=== PATIENT | male | born 1980 | race Caucasian/White ===

== ENCOUNTER 2017-02-16 17:43 | Emergency (ER) | payer MEDICAID ==
[~2017-02-16] VITALS: Ht 160 cm; Wt 74.0 kg
[2017-02-16 23:44] VITALS: BP 118/70
== END 2017-02-16 23:44 | disposition home or self-care (01) ==
LOC: ED 17:43
DX: L97.519 Non-pressure chronic ulcer of other part of right foot with unspecified severity (principal); L03.115 Cellulitis of right lower limb
CPT/HCPCS: J0696

== ENCOUNTER 2018-03-31 09:23 | Emergency (ER) | payer MEDICAID ==
[~2018-03-31] VITALS: Ht 167.6 cm; Wt 73.0 kg
[2018-03-31 09:31] VITALS: Ht 167.6 cm; Wt 73.0 kg
[2018-03-31 11:21] VITALS: BP 137/89
== END 2018-03-31 11:21 | disposition home or self-care (01) ==
LOC: ED 09:23
DX: T63.441A Toxic effect of venom of bees, accidental (unintentional), initial encounter (principal); Y92.89 Other specified places as the place of occurrence of the external cause
CPT/HCPCS: J1200; J2930

== ENCOUNTER 2018-08-15 07:14 | Inpatient (IN) | payer MEDICAID ==
[~2018-08-15] VITALS: Ht 167.6 cm; Wt 74.9 kg
[2018-08-15 07:19] VITALS: Ht 167.6 cm; Wt 74.9 kg
--- NOTE | 2018-08-15 07:30 | NUR ---
PT BIB WITH C/O ABDOMINAL PAIN X3 DAYS. LOCATION IS [place], PAIN IS CONSTANT AND HAS BEEN WORSENING. PT DENIES N/V/D OR FEVER. AT BEDSIDE PT IS AAOX4, RESPS E/U, SKIN IS PINK, WARM AND DRY. PT AMBULATED WITH STEADY GAIT FROM LOBBY TO ROOM. PT AND ORIENTED TO ROOM AND USE OF CALL VIDAL. BED IN LOWEST POSITION. DR. GERMAN COMPLETED MSE.
--- NOTE | 2018-08-15 07:44 | NUR ---
PT MEDICATED PER MD ORDERS. PT VERBALIZES UNDERSTANDING OF MEDICAITON. SEE EMAR FOR DETAILS.
[2018-08-15 07:49] LABS: BASOPHIL % 0.5 % (0-2); RED CELL DISTRIBUTION WIDTH 13.3 % (11.5-14.5)
[2018-08-15 07:53] LABS: PLATELET COUNT 430 x10^3mcL (130-400)
--- NOTE | 2018-08-15 08:04 | NUR ---
PT TAKEN TO ULTRA SOUND VIA WHEELCHAIR. NO DISTRESS NOTED AEB RESPS E/U, PT CALM AND COOPERATIVE.
[2018-08-15 08:08] LABS: CALCIUM 8.6 mg/dL (8.5-10.1); CARBON DIOXIDE 30.1 mmol/L (21-32); CHLORIDE SERUM 100 mmol/L (98-107); CREATININE SERUM 1.1 mg/dL (0.7-1.3); GFR1 > 60 mL/min; GLUCOSE SERUM 133 mg/dL (74-106); POTASSIUM SERUM 3.3 mmol/L (3.5-5.1); SODIUM SERUM 133 mmol/L (136-145)
[2018-08-15 08:11] LABS: AMPHETAMINE QUAL UR NONE DETECTED (See below)
[2018-08-15 08:13] LABS: ALBUMIN 3.4 g/dL (3.4-5.0); ALKALINE PHOSPHATASE 86 U/L (46-116); ALT/SGPT 36 U/L (16-63); AMYLASE 358 U/L (25-115); AST/SGOT 26 U/L (15-37); BILIRUBIN TOTAL 0.91 mg/dL (0.20-1.00); TOTAL PROTEIN, SERUM 7.1 g/dL (6.4-8.2)
[2018-08-15 08:32] LABS: LIPASE 5538 IU/L (73-393)
--- NOTE | 2018-08-15 09:02 | NUR ---
PER DR. ROBLES ONLY GIVE 1 LITER VS. 2 LITERS.
--- NOTE | 2018-08-15 09:17 | NUR ---
PT MEDICATED PER MD ORDERS. PT VERBALIZED UNDERSTANDING OF MEDICATION. SEE EMAR FOR DETAILS.
--- NOTE | 2018-08-15 09:24 | NUR ---
PER PT "PAIN WENT DOWN". AND RATES PAIN AT 3/10.
--- NOTE | 2018-08-15 10:12 | NUR ---
REPORT GIVEN TO REMEDIOS DENISE FROM [facility] TO ASSUME CARE FOR PT.
--- NOTE | 2018-08-15 10:21 | NUR ---
PER PT PAIN RETURNED BUT WENT AWAY. WHEN IT DOES PT STATES "IT'S LIKE A 5/10"
--- NOTE | 2018-08-15 10:50 | NUR ---
RECEIVED PT FROM ED WITH CC EPIGASTRIC/ABDOMINAL PAIN X2 DAYS. PT REPORTS DRINKING 6 CANS OF BEER PRIOR TO EPIGASTRIC PAIN ONSET. AAOX4. RESP EVEN AND UNLABORED ON RA. ABDOMEN SOFT, ROUND. BOWEL SOUNDS ACTIVE. LAST MEAL 08/14/17 IN THE AFTERNOON. LAST BM 08/14/17, [facility]. C/O 10/10 EPIGASTRIC PAIN AT THIS TIME, WILL MEDICATE ORDERED. DENIES N/V. VOIDING FREELY. AMBULATORY. IV TO LAC AND RAC, NO REDNESS OR SWELLING. ORIENTED TO ROOM AND SURROUNDINGS. BED IN LOW POSITION, CALL LIGHT WITHIN REACH. WILL CONTINUE TO MONITOR.
[2018-08-15 11:12] VITALS: BP 141/87
[2018-08-15 12:37] LABS: MAGNESIUM 1.9 mg/dL (1.8-2.4); PHOSPHOROUS 3.9 mg/dL (2.5-4.9)
[2018-08-15 12:41] LABS: T3 TOTAL 0.88 ng/mL
[2018-08-15 13:57] VITALS: BP 125/87
--- NOTE | 2018-08-15 13:58 | NUR ---
PT CONTINUES TO C/O EPIGASTRIC PAIN. MEDICATED ORDERED. RESTING WITH EYES CLOSED. RESP EVEN AND UNLABORED ON RA. IVF INFUSING, NO REDNESS OR SWELLING TO RAC AND LAC. NPO EXCEPT MEDS. CALL LIGHT WITHIN REACH. WILL CONTINUE TO MONITOR.
[2018-08-15 14:21] LABS: FREE T4 0.83 ng/dL (0.76-1.46); FREE THYROXINE INDEX 2.2 ug/dL (1.4-4.5); T4(THYROXINE) 5.6 ug/dL (4.7-13.3)
[2018-08-15 15:50] VITALS: BP 150/79
--- NOTE | 2018-08-15 18:55 | NUR ---
PT RESTING IN BED. MEDICATED ORDERED FOR EPIGASTRIC PAIN AND HEADACHE. NPO EXCEPT MEDS. IVF INFUSING, NO REDNESS OR SWELLING NOTED. BED IN LOW POSITION, CALL LIGHT WITHIN REACH. WILL ENDORSE TO ONCOMING SHIFT.
--- NOTE | 2018-08-15 20:00 | NUR ---
RECEIVED PT IN BED, ALERT AND ORIENTED. DENIES HEADACHE/DIZZINESS. RESP. EVEN AND UNLABORED. ON ROOM AIR, NO ACUTE DISTRESS NOTED. NO TELE, DENIES CP OR ANY DISCOMFORT AT THIS TIME. IVF, NS AT 200ML/HR, INTACT AND INFUSING VIA RAC, SITE CLEAR. NPO EXCEPT MEDS. ABD. SOFT, NON DISTENDED, NO N/V NOTED. VOIDING FREELY. AMBULATORY. CALL LIGHT WITHIN REACH. WILL CONTINUE TO MONITOR.
[2018-08-15 22:00] VITALS: BP 127/82
--- NOTE | 2018-08-15 23:08 | NUR ---
COMPLAINED OF ABD. PAIN, 01/11, REQUESTING PAIN MED. MEDICATED WITH DILAUDID IV ORDERED. WILL CONTINUE TO MONITOR.
--- NOTE | 2018-08-16 01:54 | NUR ---
EYES CLOSED, APPEARS ASLEEP. EASILY AROUSABLE. NO ACUTE DISTRESS NOTED. WILL CONTINUE TO MONITOR.
[2018-08-16 05:12] VITALS: BP 119/76
--- NOTE | 2018-08-16 05:54 | NUR ---
CONT. TO COMPLAIN OF ABD. PAIN, MEDICATED ORDERED WITH RELIEF.NPO EXCEPT MEDS MAINTAINED. AFEBRILE AND VITAL SIGNS STABLE. RESP. EVEN AND UNLABORED. NO ACUTE DISTRESS NOTED. VOIDING FREELY . ENCOURAGED AMBULATION. KEPT COMFORTABLE. CALL LIGHT WITHIN REACH. WILL CONTINUE TO MONITOR.
[2018-08-16 06:48] LABS: CALCIUM 8.1 mg/dL (8.5-10.1); CARBON DIOXIDE 27.8 mmol/L (21-32); CHLORIDE SERUM 100 mmol/L (98-107); CREATININE SERUM 0.9 mg/dL (0.7-1.3); GFR1 > 60 mL/min; GLUCOSE SERUM 112 mg/dL (74-106); POTASSIUM SERUM 3.9 mmol/L (3.5-5.1); SODIUM SERUM 135 mmol/L (136-145)
[2018-08-16 06:49] LABS: BASOPHIL % 0.1 % (0-2); PLATELET COUNT 360 x10^3mcL (130-400); RED CELL DISTRIBUTION WIDTH 12.9 % (11.5-14.5)
--- NOTE | 2018-08-16 07:40 | NUR ---
RC'D PT RESTING IN BED WITH NO APPARENT SIGNS OF DISTRESS. A/A/O/X4, SPEECH CLEAR AND APPROPRIATE. MEDSURG. DENIES CHEST PAIN/PRESSURE. PALP PULSES, NO EDEMA NOTED. RESPIRATIONS EQUAL AND UNLABORED. LUNGS CTA. ON RA, DENIES SOB. ABDOMEN TENDER. HYPOACTIVE BS. DENIES N/V. VOIDS FREELY, DENIES BURNING. AMBULATORY. SKIN W/D/I. DENIES EXCESSIVE PAIN AT THIS TIME. IV PATENT AND INTACT. BED IN LOW POSITION. CALL LIGHT IN REACH. WILL CONTINUE TO MONITOR
[2018-08-16 08:06] VITALS: BP 117/68
[2018-08-16 08:21] LABS: LIPASE 5336 IU/L (73-393)
--- NOTE | 2018-08-16 09:15 | NUR ---
PT C/O OF HARKINS, MEDICATED PER EMAR. RESPIRATIONS EQUAL AND UNLABORED. ON RA, DENIES SOB. BED IN LOW POSITION. CALL LIGHT IN REACH. WILL CONTINUE TO MONITOR
--- NOTE | 2018-08-16 15:47 | NUR ---
PT C/O OF HARKINS, MEDICATED PER EMAR. WILL CONTINUE TO MONITOR
[2018-08-16 16:33] VITALS: BP 125/73
--- NOTE | 2018-08-16 17:47 | NUR ---
PT RESTING IN BED WITH NO APPARENT SIGNS OF DISTRESS. MEDSURG. DENIES CHEST PAIN/PRESSURE. RESPIRATIONS EQUAL AND UNLABORED. ON RA, DENIES SOB. ABDOMEN NONTENDER AT THIS TIME. DENIES N/V/PAIN. AMBULATORY. DENIES EXCESSIVE PAIN AT THIS TIME. IV PATENT AND INTACT. BED IN LOW POSITION. CALL LIGHT IN REACH. WILL ENDORSE TO SUBSTATION OPERATOR RN
--- NOTE | 2018-08-16 19:30 | NUR ---
RECIEVED PATIENT AT START OF SHIFT A/O X4. NO EDEMA NOTED, CAP REFILL BRISK, PULSES MODERATE. LUNGS CLEAR TO AUSCULTATION BILATERALLY. NO ABDOMINAL PAIN REPORTED AT THIS TIME. PATIENT IS NPO. ABDOMEN IS SOFT AND FLAT, BOWEL SOUNDS ACTIVE. PATIENT IS AMBULATORY. SKIN IS INTACT. IV INFUSING FLUIDS WITHOUT REDNESS OR EDEMA. WILL CONTINUE TO MONITOR.
--- NOTE | 2018-08-16 20:00 | NUR ---
PATIENT SHOWERED AND AMBULATED. NOW BACK IN BED RESTING. NO SOB. NO COMPLAINT OF PAIN. WILL CONTINUE TO MONITOR.
[2018-08-16 20:55] VITALS: BP 130/72
[2018-08-17 05:18] VITALS: BP 119/68
--- NOTE | 2018-08-17 06:31 | NUR ---
NO SIGNIFICANT EVENTS THIS SHIFT. WILL ENDORSE CARE TO MORNING NURSE.
[2018-08-17 07:15] LABS: BASOPHIL % 0.3 % (0-2); PLATELET COUNT 336 x10^3mcL (130-400); RED CELL DISTRIBUTION WIDTH 13.2 % (11.5-14.5)
[2018-08-17 07:17] LABS: CALCIUM 8.2 mg/dL (8.5-10.1); CARBON DIOXIDE 25.3 mmol/L (21-32); CHLORIDE SERUM 103 mmol/L (98-107); CREATININE SERUM 0.9 mg/dL (0.7-1.3); GFR1 > 60 mL/min; GLUCOSE SERUM 68 mg/dL (74-106); LIPASE 1354 IU/L (73-393); POTASSIUM SERUM 3.2 mmol/L (3.5-5.1); SODIUM SERUM 135 mmol/L (136-145)
--- NOTE | 2018-08-17 07:30 | NUR ---
RC'D PT RESTING IN BED WITH NO APPARENT SIGNS OF DISTRESS. A/A/O/X4, SPEECH CLEAR AND APPROPRIATE. DENIES HARKINS/DIZZINESS. MEDUSRG. DENIES CHEST PAIN/PERSSURE. PALP PULSES. RESPIRATIONS EQUAL AND UNLABORED. LUNGS CTA. ON RA, DENIES SOB. ABDOMEN NONTENDER. DENIES N/V. VOIDS FREELY. AMBULATORY. SKIN W/D/I. DENIES PAIN AT THIS TIME. IV PATENT AND INTACT. BED IN LOW POSITION. CALL LIGHT IN REACH. WILL CONTINUE TO MONITOR
[2018-08-17 09:29] VITALS: BP 119/67
--- NOTE | 2018-08-17 12:05 | NUR ---
PT RESTING IN BED WITH NO APPARENT SIGNS OF DIISTRESS. RESPIRATIONS EQUAL AND UNLABORED. PT DENIES PAIN AT THIS TIME. BED IN LOW POSITION. CALL LIGHT IN REACH. WILL CONTINUE TO MONITOR
--- NOTE | 2018-08-17 13:31 | NUR ---
PT ENDORSED TO JULIANNA WHITTAKER, ALL QUESTIONS AND CONCERNS ADDRESSED. JULIANNA TO ASSUME CARE AT THIS TIME
--- NOTE | 2018-08-17 13:51 | NUR ---
RECEIVED ENDORSEMENT FROM REMEDIOS DEAL; PT A/A/O X 4, CALM, COOPERATIVE. PT DENIES ABD PAIN; PT STATES HE HAD SOFT BM. WILL CONTINUE TO MONITOR.
[2018-08-17 16:02] VITALS: BP 119/67
--- NOTE | 2018-08-17 16:47 | NUR ---
PT GIVEN DISCHARGE PACKET. DISCUSSED CURRENT STAY, INCLUDING MEDICATIONS, PROCEDURES DONE, LAB RESULTS, AND TEACHINGS RE: PANCREATITIS, ETOH ABUSE, GASTRITIS, DIET, EXERCISE. ALL QUESTIONS WERE ANSWERED, PT VERBALIZED UNDERSTANDING. ALL D/C FORMS SIGNED. ALL ID BANDS REMOVED. IV REMOVED FROM RAC, CATH TIP INTACT, NO S/S INFECTION OR BLEEDING. PT'S CAME IN TO PICK HIM UP. PT ACCOMPANIED TO LOBBY BY SOLE ROUNDING MACHINE OPERATOR AND . AMBULATED WITHOUT GAIT OR BALANCE IMPAIRMENT. NO RESPIRATORY DISTRESS, PAIN, OR DISCOMFORT NOTED.
== END 2018-08-17 16:40 | disposition home or self-care (01) | DRG 282 ==
LOC: ED 07:14 → MU 09:41
PROVIDERS: Specialist; ADMIT Family Medicine
DX: K85.20 Alcohol induced acute pancreatitis without necrosis or infection (principal); E87.1 Hypo-osmolality and hyponatremia; E87.6 Hypokalemia; D47.3 Essential (hemorrhagic) thrombocythemia; F17.210 Nicotine dependence, cigarettes, uncomplicated
CPT/HCPCS: 84439; 90658; G0480; J1170; J2270; J2405; J7030; Q0092

== ENCOUNTER 2020-04-16 19:35 | Emergency (ER) | payer MEDICAID ==
[~2020-04-16] VITALS: Ht 165.1 cm; Wt 75.7 kg
[2020-04-16 19:48] VITALS: Ht 165.1 cm; Wt 75.7 kg
[2020-04-16 22:17] VITALS: BP 126/80
== END 2020-04-16 22:12 | disposition home or self-care (01) ==
LOC: ED 19:35
DX: S00.531A Contusion of lip, initial encounter (principal); Y04.8XXA Assault by other bodily force, initial encounter; Y93.89 Activity, other specified; Y92.89 Other specified places as the place of occurrence of the external cause; Y99.8 Other external cause status
CPT/HCPCS: 90714

== ENCOUNTER 2020-05-04 11:47 | Emergency (ER) | payer MEDICAID ==
[~2020-05-04] VITALS: Ht 165.1 cm; Wt 75.3 kg
[2020-05-04 11:56] VITALS: Ht 165.1 cm; Wt 75.3 kg
[2020-05-04 13:26] LABS: BASOPHIL % 0.5 % (0-2); PLATELET COUNT 373 x10^3mcL (130-400); RED CELL DISTRIBUTION WIDTH 12.6 % (11.5-14.5)
[2020-05-04 13:34] LABS: CARBON DIOXIDE 26.8 mmol/L (21-32); CHLORIDE SERUM 102 mmol/L (98-107); CREATININE SERUM 0.9 mg/dL (0.7-1.3); GFR1 > 60 mL/min; GLUCOSE SERUM 139 mg/dL (74-106); POTASSIUM SERUM 3.8 mmol/L (3.5-5.1); SODIUM SERUM 137 mmol/L (136-145)
[2020-05-04 13:36] LABS: LIPASE 97 IU/L (73-393)
[2020-05-04 13:44] LABS: ALKALINE PHOSPHATASE 81 U/L (46-116); ALT/SGPT 32 U/L (16-63); AST/SGOT 24 U/L (15-37); BILIRUBIN TOTAL 0.4 mg/dL (0.20-1.00); TOTAL PROTEIN, SERUM 6.8 g/dL (6.4-8.2)
[2020-05-04 13:45] LABS: ALBUMIN 3.2 g/dL (3.4-5.0)
[2020-05-04 15:52] VITALS: BP 106/75
== END 2020-05-04 15:52 | disposition home or self-care (01) ==
LOC: ED 11:47
PROVIDERS: Emergency Medicine
DX: K29.20 Alcoholic gastritis without bleeding (principal)
CPT/HCPCS: 84153; C9113; G0480; J2405; Q0092

== ENCOUNTER 2020-07-23 10:55 | Emergency (ER) | payer MEDICAID ==
[~2020-07-23] VITALS: Ht 162.6 cm; Wt 78.0 kg
[2020-07-23 11:01] VITALS: BP 118/73; Ht 162.6 cm; Wt 78.0 kg
[2020-07-23 13:00] LABS: BASOPHIL % 1.2 % (0.2-1.5)
[2020-07-23 13:20] LABS: PLATELET COUNT 603 x10^3mcL (152-348); rbc morphology (normal/abnorm) NORMAL (NORMAL)
[2020-07-23 13:27] LABS: CALCIUM 9.4 mg/dL (8.5-10.1); CHLORIDE SERUM 102 mmol/L (98-107); CREATININE SERUM 1.1 mg/dL (0.7-1.3); GFR1 > 60 mL/min; GLUCOSE SERUM 108 mg/dL (74-106); POTASSIUM SERUM 4.2 mmol/L (3.5-5.1); SODIUM SERUM 139 mmol/L (136-145)
[2020-07-23 13:32] LABS: ALBUMIN 3.4 g/dL (3.4-5.0); ALKALINE PHOSPHATASE 131 U/L (46-116); ALT/SGPT 34 U/L (16-63); AST/SGOT 16 U/L (15-37); BILIRUBIN TOTAL 0.34 mg/dL (0.20-1.00); LIPASE 117 IU/L (73-393); TOTAL PROTEIN, SERUM 7.8 g/dL (6.4-8.2)
== END 2020-07-23 15:01 | disposition home or self-care (01) ==
LOC: ED 10:55
DX: R10.13 Epigastric pain (principal)

== ENCOUNTER 2020-08-13 15:41 | Emergency (ER) | payer MEDICAID, SELFPAY ==
[~2020-08-13] VITALS: Ht 162.6 cm; Wt 75.3 kg
[2020-08-13 16:51] VITALS: BP 118/70
== END 2020-08-13 16:51 | disposition home or self-care (01) ==
LOC: ED 15:41
DX: H10.13 Acute atopic conjunctivitis, bilateral (principal); K29.70 Gastritis, unspecified, without bleeding; J30.2 Other seasonal allergic rhinitis